=== PATIENT | male | born 2000 | race Caucasian/White ===

== ENCOUNTER 2021-04-22 17:52 | Emergency (ER) | payer OTHER, SELFPAY ==
[2021-04-23 13:56] LABS: SARS-CoV-2 PCR by NAA Not Detected (NotDetected)
== END 2021-04-22 18:28 | disposition home or self-care (01) ==
LOC: ERS 17:52
DX: Z20.822 Contact with and (suspected) exposure to COVID-19 (principal); F17.290 Nicotine dependence, other tobacco product, uncomplicated
CPT/HCPCS: 99283; U0003; U0005

== ENCOUNTER 2021-05-13 01:53 | Emergency (ER) | payer SELFPAY ==
[2021-05-13] MEDS ORDERED: Ibuprofen 800 MG TAB ONE (02:23)
[2021-05-13 03:43] LABS: SARS-CoV-2 NAA Rapid Test DETECTED (NotDetected)
== END 2021-05-13 02:57 | disposition home or self-care (01) ==
LOC: ERS 01:53
DX: U07.1 COVID-19 (principal); F17.290 Nicotine dependence, other tobacco product, uncomplicated
CPT/HCPCS: 71045; 93005; U0002